=== PATIENT | female | born 1975 ===

== ENCOUNTER → 2018-08-07 21:51 | Outpatient (REF) | payer OTHER, SELFPAY ==
[2018-08-09 15:29] LABS: Progesterone 7.7 ng/mL
[2018-08-12 11:55] LABS: Estrogen 206.6 pg/mL
[2018-08-12 20:00] LABS: Testosterone Free 5.9 pg/mL (0.1-6.4); Testosterone Total 42 ng/dL (2-45)
== END ==
LOC: LAB 21:51
PROVIDERS: Visit Provider Naturopath
DX: Z79.890 Hormone replacement therapy (principal); R68.82 Decreased libido; E28.9 Ovarian dysfunction, unspecified; F43.23 Adjustment disorder with mixed anxiety and depressed mood; R53.82 Chronic fatigue, unspecified
CPT/HCPCS: 82672; 84144; 84402; 84403

== ENCOUNTER → 2019-01-15 21:47 | Outpatient (ROUT) | payer OTHER, SELFPAY ==
[2019-01-16 01:26] LABS: Add Manual Diff / Slide Review NO; Basophils Absolute Auto 0 /uL (0-100); Basophils Percent Auto 0.5 % (0-2); Eosinophils Absolute Auto 100 /uL (0-450); Eosinophils Percent Auto 2.2 % (2-4); Hematocrit 39.9 % (36-46); Hemoglobin 13.2 g/dL (12.0-16.0); Lymphocytes Absolute Auto 1500 /uL (1100-4500); Mean Corpuscular HGB Conc 33.2 % (30-36); Mean Corpuscular Hemoglobin 32.5 PG (26-34); Mean Corpuscular Volume 97.9 fL (80-100); Monocytes Absolute Auto 200 /uL (0-900); Monocytes Percent Auto 5.9 % (3-14); Neutrophils Absolute Auto 2300 /uL (1500-7000); Neutrophils Percent Auto 54.4 % (50-75); Platelet Count 160 X10^3/uL (150-400); Red Blood Cell Count 4.07 X10^6/uL (4.0-5.2); White Blood Cell Count 4.2 X10^3/uL (4.5-11.0)
[2019-01-16 03:46] LABS: HEMOLYSIS < 15 (0-50)
[2019-01-16 03:52] LABS: Alanine Aminotransferase 22 IU/L (9-52); Albumin 4.4 g/dL (3.5-5.0); Albumin Globulin Ratio 1.5 (1.0-2.8); Alkaline Phosphatase 61 U/L (38-126); Aspartate Aminotransferase 22 IU/L (14-36); BUN Creatinine Ratio 16.3 (6-22); Bilirubin Total 0.7 mg/dL (0.2-1.3); Blood Urea Nitrogen 13 mg/dL (7-17); Calcium 9.3 mg/dL (8.4-10.2); Carbon Dioxide 28 mmol/L (22-32); Chloride 102 mmol/L (98-107); Estimated Glomerular Filt Rate > 60.0 mL/min (>60); Glucose 86 mg/dL (70-100); Potassium 4.3 mmol/L (3.4-5.1); Sodium 139 mmol/L (137-145); Total Protein 7.4 g/dL (6.3-8.2)
[2019-01-16 04:07] LABS: Free T3, Triiodothyronine Free 3.39 pg/mL (2.77-5.27); Free T4, Direct Thyroxine 1.08 ng/dL (0.78-2.19)
[2019-01-16 04:20] LABS: Thyroid Stimulating Hormone 2.17 uIU/mL (0.47-4.68)
[2019-01-16 04:28] LABS: Ferritin 47.1 ng/mL (6.27-137)
[2019-01-16 04:57] LABS: Progesterone, Total 0.56 ng/mL
[2019-01-21 15:14] LABS: Estrogen 74.5 pg/mL
== END ==
PROVIDERS: Visit Provider Naturopath
DX: R10.9 Unspecified abdominal pain (principal); E28.9 Ovarian dysfunction, unspecified; R53.83 Other fatigue
CPT/HCPCS: 36415; 80053; 82672; 82728; 84144; 84402; 84403; 84439; 84443; 84481; 85025